=== PATIENT | female | born 1965 | race Caucasian/White ===

== ENCOUNTER → 2021-07-31 09:58 | Outpatient (CLI) | payer BC, SELFPAY ==
--- NOTE | ~2021-07-31 | MMUS_ITS ---
EXAMINATION: MM diagnostic nikolas BI w mack, US breast BI complete HISTORY: Right nipple discoloration TECHNIQUE: Additional 3-D tomosynthesis images of the breasts were performed and synthetic 2-D images were generated. CAD analysis was submitted and interpreted. High resolution bilateral complete breas t ultrasound was performed. COMPARISON: Comparison to multiple prior studies sequentially, with oldest reviewed study dated 07/22. BREAST PARENCHYMAL COMPOSITION: The breasts are heterogenously dense, which may obscure small masses FINDINGS: MAMMOGRAPHIC FINDINGS: The breasts are stable. No new masses, calcifications or architectural distortion in either breast to suggest malignancy. ULTRASOUND: Complete bilateral US of all 4 quadrants of the breasts and retroareolar region was reviewed. Right b reast: At 1:00 near the areola there is a 6 mm cyst. At 9:00, 4 cm from the nipple there are 2 adjace nt cysts, largest measuring 5 mm. At 10:00, 4 cm from the nipple, there is a 4 mm complicated cyst. Left breast ultrasound: At 12:00, 3 cm from the nipple there is a 4 mm cyst. At 2:00, 2.5 cm from the nipple, there is an oval hypoechoic mass with low level internal echoes measuring 9 mm maximum dimen fernando. No significant posterior features or internal vascularity. Parallel orientation. This is likely benign complicated cyst. At 2:00 near the areola there is a 6 mm cyst. At 7:00 near the areola there is a 5 mm cyst. At 11:00 near the areola there is a 3 mm cyst. IMPRESSION: 1. Probable benign complicated cysts of the breasts on the right at 10:00, 4 cm from the nipple and o n the left at 2:00, 2.5 cm from the nipple. 2. Recommend 6 month follow-up targeted bilateral breast ultrasound BI-RADS category 3, probably benign findings. Reviewed, dictated and finalized at location A. IMPRESSION: 1. Probable benign complicated cysts of the breasts on the right at 10:00, 4 cm from the nipple and on the left at 2:00, 2.5 cm from the nipple. 2. Recommend 6 month follow-up targeted bilateral breast ultrasound BI-RADS category 3, probably benign findings.
== END ==
PROVIDERS: Visit Provider Obstetrics & Gynecology Gynecology
DX: N60.02 Solitary cyst of left breast (principal); N60.01 Solitary cyst of right breast
CPT/HCPCS: 76641; 77062; 77066; G0279

== ENCOUNTER → 2022-01-29 10:00 | Outpatient (CLI) | payer BC, SELFPAY ==
--- NOTE | ~2022-01-29 | US_ITS ---
US breast BI limited DATE: 01/29/2022 10:36 INDICATION: Six-month follow-up of probable benign complicated cysts and the breasts on the right at 10:00 4 cm from nipple and on the left at 2:00 2.5 cm from nipple Patient verbalized complaint of new right axillary lump. TECHNIQUE: Limited targeted bilateral breast ultrasound examination COMPARISON: 07/31/2021 bilateral diagnostic mammography 07/31/2021 bilateral complete breast ultrasound FINDINGS: Right axilla: The patient complained of new left and right axilla. No suspicious mass or shadowing of the right axillary soft tissues. Right breast: 9:00 4 cm from nipple: Parallel circumscribed sonolucency with through transmission posterior enhance ment, measuring 2.3 x 4.4 x 6 mm, benign in appearance 10:00 4 cm from nipple: 1.8 x 3 mm sonolucency without internal vascularity or posterior shadowing, u nchanged since 07/31/2021. 1:00 subareolar area: Parallel circumscribed 1.6 x 4.8 x 6 mm circumscribed parallel sonolucency with out internal vascularity or posterior shadowing Left breast: 12:00 5 cm from nipple: 3.6 x 2.2 x 3.7 mm sonolucency without internal vascularity or posterior shad owing 1:00 6 cm from nipple: 4.3 x 2.8 x 4.1 mm sonolucency consistent with simple cyst 2:00 2.5 cm from nipple: Parallel circumscribed hypoechoic lesion without internal vascularity or pos terior shadowing, measuring 6.5 x 4.8 x 9.6 mm, not significantly changed since 07/31/2021 2:00 subareolar area: 2.6 x 5.8 x 5.8 mm parallel circumscribed sonolucency without internal vascular ity or posterior shadowing, stable 7:00 subareolar area: Parallel circumscribed sonolucency without through transmission posterior enhan cement, measuring 4.8 x 2 x 6.6 mm, benign in appearance 11:00 subareolar area: 2 x 3 mm cyst with through transmission IMPRESSION: Probable benign findings Another six-month follow-up targeted to left breast 2:00 lesion 2.5 cm from nipple is recommended, al eric with bilateral mammogram BI-RADS Category 3: Probably benign Reviewed, dictated and finalized at [facility]. Reviewed, dictated and finalized at location A. IMPRESSION: Probable benign findings Another six-month follow-up targeted to left breast 2:00 lesion 2.5 cm from nip ple is recommended, along with bilateral mammogram BI-RADS Category 3: Probably benign
== END ==
PROVIDERS: Visit Provider Obstetrics & Gynecology Gynecology
DX: R92.8 Other abnormal and inconclusive findings on diagnostic imaging of breast (principal); N63.11 Unspecified lump in the right breast, upper outer quadrant; N63.42 Unspecified lump in left breast, subareolar; N63.41 Unspecified lump in right breast, subareolar; N60.02 Solitary cyst of left breast
CPT/HCPCS: 76642

== ENCOUNTER 2022-08-07 13:42 | Emergency (ER) | payer BC, SELFPAY ==
[2022-08-07 13:51] VITALS: BP 144/86; PULSE 112; RESP 20; TEMP 36.5; O2SAT 97
--- NOTE | 2022-08-07 14:04 | ECG_ITS ---
Measurements Intervals [place] Rate: 112 P: 66 MA: 194 QRS: 61 QRSD: 89 T: 51 QT: 321 QTc: 440 Interpretive Statements SINUS TACHYCARDIA POSSIBLE LEFT ATRIAL ENLARGEMENT [-0.1mV P WAVE IN V1/V2] BORDERLINE ECG NO PREVIOUS ECG AVAILABLE FOR COMPARISON Electronically Signed On 08-08-2022 9:28:47 CDT by Eric Alejandra M.D.
--- NOTE | 2022-08-07 14:19 | ED.CHESTPAIN ---
HPI - Chest Pain General Chief Complaint: Chest Pain Stated Complaint: cp Time Seen by Provider: 08/07/22 14:10 Source: patient Mode of arrival: ambulatory Limitations: no limitations History of Present Illness HPI narrative: Patient presents today complaining of sternal chest pain at 11 AM today. It is worse when bending over. She denies any additional symptoms to include shortness of breath, dizziness, lightheadedness, numbness or tingling, any abnormal swelling, nausea or vomiting, abdominal pain. States her, arms feel weird , but cannot specify what that means. Denies any heart or lung problems. She does not smoke. States she has had similar symptoms intermittently over the past 3 to 4 months, but states they quickly resolved. Related Data Home Medications Medication Instructions Recorded Confirmed fluoxetine 40 mg capsule (Prozac) 40 mg PO DAILY 09/29/19 lamotrigine 200 mg tablet 250 mg PO DAILY 09/29/19 lurasidone 20 mg tablet (Latuda) 10 mg PO BID 09/29/19 solifenacin 5 mg tablet mg PO 08/07/22 Allergies Allergy/AdvReac Type Severity Reaction Status Date / Time cefazolin Allergy Severe HIVES Verified 08/07/22 14:01 06/17/14 Review of Systems Review of Systems: CONSTITUTIONAL: Denies body aches, fever, chills, or sweats. EYES: Denies visual changes, redness, or discharge. ENT: Denies rhinorrhea, congestion, sore throat, or otalgia. CARDIOVASCULAR: Denies palpitations, or edema.+ Chest pain RESPIRATORY: Denies cough or dyspnea. GASTROINTESTINAL: Denies abdominal pain, nausea, vomiting, or diarrhea. GENITOURINARY: Denies dysuria or hematuria. SKIN: Denies rash, itching, or wounds. MUSCULOSKELETAL: Denies back pain, joint pain, or myalgia. NEUROLOGIC: Denies headache, numbness, tingling, or weakness. PSYCH: Denies depression or anxiety. [facility] Surgical History Surgical History H/O: hysterectomy Family History Family History Father Family history of lung cancer Social History Social History Smoking status: Former smoker Tobacco type: cigarettes Smoking end date: 10/20/99 Alcohol intake: current Comments At time of signature, I have reviewed and agree with nursing past medical, surgical, social and family history unless otherwise noted. Please see nursing chart for further information. There is no relevant family history pertinent to the presenting complaint Exam Narrative: GENERAL: Well-appearing, well-nourished, and in no acute distress. HEAD: Normocephalic, atraumatic. EYES: EOMI. No redness or drainage. Conjunctivae normal. ENT: Mucous membranes pink and moist. NECK: Normal AROM. Supple. No lymphadenopathy. CHEST: No respiratory distress. Clear to auscultation. HEART: Regular rhythm. + Tachycardia. No murmur appreciated. Normal peripheral pulses. ABDOMEN: Soft, nontender, nondistended, normal active bowel sounds. MUSCULOSKELETAL: No bony tenderness. EXTREMITIES: Normal range of motion. No edema. SKIN: Warm, dry, no rash. Capillary refill normal. Normal skin turgor. NEURO: No focal deficits. Alert and oriented x3. Gait steady. PSYCH: Normal affect. No signs of depression or anxiety. Course Course Level of Care: Express Care Visit Vital Signs Vital signs: Vital Signs Temperature 97.7 F 08/07/22 13:51 Pulse Rate 112 H 08/07/22 13:51 Respiratory Rate 20 08/07/22 13:51 Blood Pressure 144/86 H 08/07/22 13:51 Pulse Oximetry 97 08/07/22 13:51 Oxygen Delivery Room Air 08/07/22 13:51 Temperature 97.7 F 08/07/22 13:51 Pulse Rate 112 H 08/07/22 13:51 Respiratory Rate 20 08/07/22 13:51 Blood Pressure 144/86 H 08/07/22 13:51 Pulse Oximetry 97 08/07/22 13:51 Oxygen Delivery Room Air 08/07/22 13:51 Transfer Transfered to: [facility]
== END 2022-08-07 14:25 | disposition short-term general hospital (02) ==
PROVIDERS: Emergency Provider Nurse Practitioner; PCP Internal Medicine
DX: R07.9 Chest pain, unspecified (principal); Z87.891 Personal history of nicotine dependence
CPT/HCPCS: 93005; 99213; G0463

== ENCOUNTER 2022-08-07 14:40 | Emergency (ER) | payer BC, SELFPAY ==
[2022-08-07] VITALS (23 sets, daily range): BP systolic 114–139; BP diastolic 83–101; PULSE 78–102; RESP 14–25; TEMP 37.1; O2SAT 96–99
--- NOTE | ~2022-08-07 | CT_ITS ---
EXAMINATION: CTA chest PE protocol DATE: 08/07/2022 19:10 INDICATION: chest pain, elevated dimer TECHNIQUE: Computed tomography angiography (CTA) of the chest was performed with 100 mL Omnipaque-350 intravenous contrast timed to evaluate the pulmonary arteries. Coronal maximum intensity projection 3D-reconstructions were created by the technologist. The dose-length product (DLP) was 309.11 mGy-cm. Automated exposure control and iterative reconstruction technique were employed. COMPARISON: X-ray chest, same date. FINDINGS: Lung parenchyma and airways: Left lower lobe scar and bibasilar dependent atelectasis. Pleura: Unremarkable. Thoracic inlet, axillae and chest wall: Unremarkable. Thoracic aorta: Normal. Mediastinum: Normal. Heart and pericardium: Normal. Coronary artery calcifications: Absent. Upper abdomen: No significant finding. Bones: No acute osseous finding. Pulmonary arteries: Study quality: Adequate. No pulmonary emboli detected. IMPRESSION: No CT evidence of acute pulmonary embolus. Reviewed, dictated and finalized at location K.
--- NOTE | ~2022-08-07 | XR_ITS ---
EXAMINATION: XR chest 2V DATE: 08/07/2022 15:21 INDICATION: Midsternal chest pain. TECHNIQUE: Frontal and lateral views of the chest were obtained. COMPARISON: Chest 2 views 11/16/2013 FINDINGS: The chest demonstrates clear lungs without pneumonia, pleural effusion, or pneumothorax. Th e heart size is normal. IMPRESSION: 1. No acute cardiopulmonary disease. Reviewed, dictated and finalized at location B.
--- NOTE | 2022-08-07 14:45 | ECG_ITS ---
Measurements Intervals [place] Rate: 91 P: 68 MN: 179 QRS: 53 QRSD: 86 T: 63 QT: 329 QTc: 406 Interpretive Statements SINUS RHYTHM NORMAL ECG COMPARED TO ECG 08/07/2022 13:59:04 SINUS RHYTHM NOW PRESENT Electronically Signed On 08-08-2022 9:28:56 CDT by Eric Alejandra M.D.
[2022-08-07 16:09] LABS: Basophils Absolute Auto 0.1 K/mm3 (0.0-0.1); Basophils Percent Auto 0.9 % (0.2-1.2); Eosinophils Absolute Auto 0.1 K/mm3 (0-0.3); Eosinophils Percent Auto 0.8 % (0-4.4); Hematocrit 45.9 % (37.0-47.0); Immature Granulocyte Absolute 0.03 K/mm3 (0.00-0.031); Immature Granulocyte Percent A 0.3 % (0-0.5); Lymphocytes Absolute Auto 2.32 K/mm3 (0.9-3.2); Lymphocytes Percent Auto 25.1 % (18.3-44.2); Mean Corpuscular HGB Conc 32.7 g/dl (32-36); Mean Corpuscular Hemoglobin 31.8 pg (26-34); Mean Corpuscular Volume 97.5 fl (80-100); Mean Platelet Volume 9.2 fl (7.4-10.4); Monocytes Absolute Auto 0.8 K/mm3 (0.1-0.6); Monocytes Percent Auto 8.6 % (2.6-8.5); Neutrophils Percent Auto 64.3 % (45.5-73.1); Platelet Count Result 398 k/mm3 (150-375); Red Blood Count 4.71 M/mm3 (4.2-5.4); Red Cell Distribution Width 13.2 % (11.5-14.5); White Blood Count 9.3 K/mm3 (4.5-10.0)
--- NOTE | 2022-08-07 16:21 | ED.CHESTPAIN ---
HPI - Chest Pain General Chief Complaint: Chest Pain Stated Complaint: chest pain Time Seen by Provider: 08/07/22 16:19 Source: patient Mode of arrival: ambulatory Limitations: no limitations History of Present Illness HPI narrative: Patient is a 57-year-old female presenting to the emergency department for evaluation of chest pain after being evaluated at urgent care today. Patient reports onset of chest pain at 11 AM this morning while she was driving. Patient reports radiation of the pain to the middle back, denies pleuritic pain, shortness of breath, diaphoresis, jaw pain or neck pain. Patient denies any shoulder pain, left arm pain or paresthesias. Patient denies abdominal pain or epigastric pain. She did report mild associated palpitations. Patient reports smoking history with cessation 22 years ago. She denies history of hypertension or hyperlipidemia. No family history of sudden cardiac or myocardial infarction in parents or immediate family members. Patient reports recent travel to [place] approximately 1 month ago. She denies leg swelling or calf pain. Denies history of coagulopathy. Patient reports pain is more mild in nature located in the center of her chest and is worsened with movement. She denies pain with deep inspiration. She denies resolution of the pain or worsening of the pain if sitting forward. Patient denies recent illness or known COVID infection. Related Data Home Medications Medication Instructions Recorded Confirmed fluoxetine 40 mg capsule (Prozac) 40 mg PO DAILY 09/29/19 lamotrigine 200 mg tablet 250 mg PO DAILY 09/29/19 lurasidone 20 mg tablet (Latuda) 10 mg PO BID 09/29/19 solifenacin 5 mg tablet mg PO 08/07/22 Allergies Allergy/AdvReac Type Severity Reaction Status Date / Time cefazolin Allergy Severe HIVES Verified 08/07/22 17:33 06/17/14 Review of Systems Review of Systems: CONSTITUTIONAL: Denies fever, chills, or sweats. EYES: Denies visual changes, redness, or discharge. ENT: Denies rhinorrhea, congestion, sore throat, or otalgia. CARDIOVASCULAR: Reports chest pain, palpitations, denies leg edema RESPIRATORY: Denies cough or dyspnea. GASTROINTESTINAL: Denies abdominal pain, nausea, vomiting, or diarrhea. GENITOURINARY: Denies dysuria or hematuria. SKIN: Denies rash or itching. MUSCULOSKELETAL: Reports middle back pain without other joint pain, or myalgia. NEUROLOGIC: Denies headache, numbness, or weakness. [facility] Surgical History Surgical History H/O: hysterectomy Family History Family History Father Family history of lung cancer Social History Social History Smoking status: Former smoker Tobacco type: cigarettes Smoking end date: 10/20/99 Alcohol intake: current Exam Narrative: GENERAL: Awake, alert, conversant HEAD: Normocephalic, atraumatic. EYES: PERRLA and EOMI. ENT: Nares clear, no rhinorrhea or epistaxis. Mucous membranes moist. NECK: Supple. CHEST: No respiratory distress, breathing even and non labored, no chest wall tenderness HEART: Regular rate, sinus rhythm ABDOMEN:Non distended, non tender EXTREMITIES: Normal range of motion. No edema. SKIN: Warm, dry, no rash. NEURO:No focal deficits. Alert and oriented x3 Course Vital Signs Vital signs: Vital Signs Temperature 37.1 C 08/07/22 14:46 Pulse Rate 102 H 08/07/22 14:46 Respiratory Rate 18 08/07/22 14:46 Blood Pressure 139/90 08/07/22 14:46 Pulse Oximetry 99 08/07/22 14:46 Oxygen Delivery Room Air 08/07/22 14:46 Temperature 37.1 C 08/07/22 14:46 Pulse Rate 98 08/07/22 18:51 Respiratory Rate 25 H 08/07/22 18:51 Blood Pressure 121/83 08/07/22 18:30 Pulse Oximetry 97 08/07/22 18:51 Oxygen Delivery Room Air 08/07/22 14:46 MDM - Chest Pain MDM Narrative Medical de
[2022-08-07 16:24] LABS: Alanine Aminotransferase 27 U/L (6-35); Albumin Level 4.5 g/dL (3.5-5.1); Alkaline Phosphatase 110 U/L (38-126); Anion Gap 11 mmol/L (8-16); Aspartate Amino Transferase 28 U/L (14-36); Bilirubin,Total 0.3 mg/dL (0.2-1.3); Blood Urea Nitrogen 12 mg/dL (7-17); Calcium 10.1 mg/dL (8.4-10.2); Carbon Dioxide 30 mmol/L (22-30); Chloride 100 mmol/L (98-107); Estimated CRCL calculation 65 ml/min; Estimated Glomerular Filt Rate > 60; Glucose 86 mg/dL (65-110); Lipase 103 U/L (23-300); Potassium 3.6 mmol/L (3.4-5.0); Sodium 141 mmol/L (137-145)
[2022-08-07 16:32] LABS: INR 1.1; Partial Thromboplastin Time 27.6 SECONDS (22.3-36.8); Prothrombin Time 13.3 Seconds (11.1-14.7)
[2022-08-07 16:35] LABS: Troponin I < 0.012 ng/mL (0.000-0.034)
[2022-08-07 18:09] LABS: D Dimer 0.62 ug/mL (<0.48)
[2022-08-07 18:16] LABS: Troponin I < 0.012 ng/mL (0.000-0.034)
== END 2022-08-07 20:10 | disposition home or self-care (01) ==
PROVIDERS: Emergency Medicine; Emergency Provider Emergency Medicine; PCP Internal Medicine
DX: R07.89 Other chest pain (principal); Z90.710 Acquired absence of both cervix and uterus; Z87.891 Personal history of nicotine dependence
CPT/HCPCS: 36415; 71046; 71275; 80053; 83690; 84484; 85025; 85380; 85610; 85730; 93005; 99284; Q9967

== ENCOUNTER → 2022-09-19 09:43 | Outpatient (CLI) | payer BC, SELFPAY ==
--- NOTE | ~2022-09-19 | MMUS_ITS ---
EXAMINATION: MM diagnostic nikolas BI w mack, US breast LT limited HISTORY: Six-month follow-up for probably benign left breast mass TECHNIQUE: Craniocaudal, mediolateral, and mediolateral oblique 3-D tomosynthesis images of the dwight ts were performed and synthetic 2-D images were generated. CAD analysis was submitted and interpreted . High resolution limited left breast ultrasound was performed. COMPARISON: 01/29/2022, 07/31/2021, 08/31/2019, 07/03/2018 BREAST PARENCHYMAL COMPOSITION: There are scattered areas of fibroglandular density. FINDINGS: MAMMOGRAPHIC FINDINGS: No suspicious mass, calcification, or architectural distortion are identified in either breast to sug gest malignancy. There has been no suspicious interval change. ULTRASOUND: Any millimeters by 4 mm oval, circumscribed parallel, hypoechoic mass with no posterior features or i nternal vascularity at the 2:00 location 2.5 cm from the nipple is stable to slightly decreased in si ze since the prior examination. There has been no suspicious interval change. IMPRESSION: 1. Stable, probably benign left breast mass. 2. Given one year of interval stability, recommend 12 month followup bilateral diagnostic mammogram a nd left breast ultrasound. BI-RADS category 3, probably benign findings. Reviewed, dictated and finalized at location A. [employer] IMPRESSION: 1. Stable, probably benign left breast mass. 2. Given one year of interval stability, recommend 12 month followup bilateral diagnostic mammogram and left breast ultrasound. BI-RADS category 3, probably benign findings.
== END ==
PROVIDERS: PCP Internal Medicine; Visit Provider Obstetrics & Gynecology Gynecology
DX: R92.8 Other abnormal and inconclusive findings on diagnostic imaging of breast (principal)
CPT/HCPCS: 76642; 77062; 77066; G0279

== ENCOUNTER 2022-11-11 20:25 | Observation (INO) | payer BC, SELFPAY ==
--- NOTE | ~2022-11-11 | CT_ITS ---
CT Abdomen and Pelvis with contrast. History: Abdominal pain. Spiral CT of the abdomen and pelvis was performed after the administration of intravenous contrast. 1 00 cc of Omnipaque 350 was administered intravenously without complication. Dose reduction technique was used on this scan by utilizing automated exposure control and iterative reconstruction technique. The dose-length product (DLP) was 842.73 mGy-cm. Findings: Scans through the lung bases demonstrate mild atelectatic change. The liver, spleen, pancreas, adrenals and kidneys are within normal limits. There is gallbladder wall thickening and/or pericholecystic fluid. No evidence of aortic aneurysm. No lymphadenopathy is seen . There is no evidence of bowel obstruction.. There is mild diverticulosis. No evidence for acute diver ticulitis or appendicitis. Images through the pelvis were performed. Urinary bladder unremarkable. Patient is post hysterectomy. No pelvic mass seen No ascites is seen. Impression: Gallbladder wall thickening and/or pericholecystic fluid are suspicious for possible acute cholecysti tis. Consider ultrasound and/or HIDA scan to further evaluate for gallbladder disease. Reviewed, dictated and finalized at [facility]. MILLER Impression: Gallbladder wall thickening and/or pericholecystic fluid are suspicious for pos sible acute cholecystitis. Consider ultrasound and/or HIDA scan to further eval uate for gallbladder disease.
--- NOTE | ~2022-11-11 | US_ITS ---
Limited Abdominal Sonogram: Real-time sonographic imaging of the right upper quadrant was performed. Clinical History: Right upper quadrant pain Findings: The liver appears normal with no evidence of mass lesion or bile duct dilatation. Main por boom vein demonstrates normal direction of flow. The gallbladder is well distended, with probable smal l stones in the gallbladder neck. Gallbladder wall mildly thickened to 5 mm. The common bile duct genesis sures 3 mm. The visualized pancreas, aorta, and IVC are unremarkable. Impression: Probable small stones the gallbladder neck with mild gallbladder wall thickening. Findings are compat ible with acute cholecystitis. HIDA scan could be considered for further confirmation as indicated. Reviewed, dictated and finalized at location M. ER TAPER Impression: Probable small stones the gallbladder neck with mild gallbladder wall thickenin g. Findings are compatible with acute cholecystitis. HIDA scan could be conside red for further confirmation as indicated.
[2022-11-11 20:36] VITALS: BP 146/93; PULSE 80; RESP 18; TEMP 36.4; O2SAT 97
[2022-11-12] MEDS: SODIUM CHLORIDE 0.9% IV 1,000 ML 999 ML IV CONT (03:44)
[2022-11-12] MEDS: ONDANSETRON INJ 4 MG/2 ML VIAL IV PUSH (03:45)
[2022-11-12] MEDS: MORPHINE SULFATE (*CRX) 4 MG/ML INJ IV PUSH (03:45)
--- NOTE | 2022-11-12 04:08 | ED.GENADULT ---
HPI - General Adult General Chief complaint: Abdominal Pain <Charlie Alegria MD - Last Filed: 11/12/22 04:10> Stated complaint: chest pain <Charlie Alegria MD - Last Filed: 11/12/22 04:10> Time Seen by Provider: 11/12/22 02:53 <Charlie Alegria MD - Last Filed: 11/12/22 04:10> History of Present Illness HPI narrative: 57-year-old female that presents the emergency department with chief complaint of epigastric pain. Patient reports the pain began about an hour after she is ate this evening and reports that its localized to the epigastrium and right upper quadrant. Patient reports the pain is not relieved by anything reports no vomiting or diarrhea. Patient reports that she had a similar episode and had an extensive cardiac work-up that was negative. Patient reports she is concerned that she may be having issues with her gallbladder. <Charlie Alegria MD - Last Filed: 11/12/22 04:10> 57-year-old female that presents to the emergency department with chief complaint of epigastric pain. Patient reports the pain began about an hour after she is ate this evening and reports that its localized to the epigastrium and right upper quadrant. Patient reports the pain is not relieved by anything reports no vomiting or diarrhea. Patient reports that she had a similar episode and had an extensive cardiac work-up that was negative. Patient reports she is concerned that she may be having issues with her gallbladder. <Daniel Lancaster MD - Last Filed: 11/12/22 17:26> Related Data Home medications: Home Medications Medication Instructions Recorded Confirmed fluoxetine 40 mg capsule (Prozac) 40 mg PO DAILY 09/29/19 11/12/22 lamotrigine 200 mg tablet 250 mg PO DAILY 09/29/19 11/12/22 solifenacin 5 mg tablet 5 mg PO DAILY 08/07/22 11/12/22 <Charlie Alegria MD - Last Filed: 11/12/22 04:10> Allergies/adverse reactions: Allergies Allergy/AdvReac Type Severity Reaction Status Date / Time cefazolin Allergy Severe HIVES Verified 11/12/22 12:24 06/17/14 <Charlie Alegria MD - Last Filed: 11/12/22 04:10> Review of Systems Review of Systems: A 10 system review of systems was completed on the patient and is negative except for what is stated in the HPI. Nursing and ancillary documentation was reviewed. <Charlie Alegria MD - Last Filed: 11/12/22 04:10> PMFSH Past Medical History Medical History: Medical History (Updated 11/12/22 @ 16:45 by Adam Osman DO) Depression Overactive bladder <Charlie Alegria MD - Last Filed: 11/12/22 04:10> Surgical History Surgical History: Surgical History H/O: hysterectomy <Charlie Alegria MD - Last Filed: 11/12/22 04:10> Family History Family History: Family History Father Family history of lung cancer <Charlie Alegria MD - Last Filed: 11/12/22 04:10> Social History Social History: Social History Smoking status: Former smoker Tobacco type: cigarettes Smoking end date: 10/20/99 Alcohol intake: current Drinks per week: 10 Substance use: current Lack of Transportation: No Lack of Food: Never True Current Housing: I Have Housing Concerned About Future Housing: No Difficulty Paying Gas/Electric Bills: No Difficulty Paying for Meds: No Currently Unemployed: No Education: High School Diploma/GED Difficulty w/ Childcare or Family Care: No Spiritual care concerns: No <Charlie Alegria MD - Last Filed: 11/12/22 04:10> Exam Narrative: GENERAL: Well-appearing, well-nourished, and in no acute distress. HEAD: Normocephalic, atraumatic. EYES: PERRLA and EOMI. ENT: Nares clear, no rhinorrhea or epistaxis. Mucous membranes moist. NECK: S
[2022-11-12 04:09] LABS: Appearance Urine Slightly Cloudy (Clear); Bilirubin Urine Negative (Negative); Blood Urine Trace-intact (Negative); Glucose Urine UA Negative (Negative); Ketones Urine Negative (Negative); Leukocyte Esterase Ur 2+ LEU/UL (Negative); Nitrate Urine Negative (Negative); Protein Urine Negative (Negative); Urobilinogen Urine 0.2 mg/dL (<2.0); pH Urine 7.5 (5.0-9.0)
[2022-11-12 04:44] LABS: Bacteria Urine Trace /hpf; WBC Urine 31-50 /hpf
[2022-11-12 05:23] LABS: Basophils Absolute Auto 0.1 K/mm3 (0.0-0.1); Basophils Percent Auto 0.7 % (0.2-1.2); Eosinophils Absolute Auto 0.1 K/mm3 (0-0.3); Eosinophils Percent Auto 0.7 % (0-4.4); Hematocrit 42.9 % (37.0-47.0); Hemoglobin 14.3 g/dL (12.0-15.0); Immature Granulocyte Absolute 0.04 K/mm3 (0.00-0.031); Immature Granulocyte Percent A 0.4 % (0-0.5); Mean Corpuscular HGB Conc 33.3 g/dl (32-36); Mean Corpuscular Hemoglobin 32.8 pg (26-34); Mean Corpuscular Volume 98.4 fl (80-100); Mean Platelet Volume 9.3 fl (7.4-10.4); Monocytes Absolute Auto 0.9 K/mm3 (0.1-0.6); Monocytes Percent Auto 9.3 % (2.6-8.5); Neutrophils Absolute Auto 6.4 K/mm3 (1.3-6.7); Neutrophils Percent Auto 63.9 % (45.5-73.1); Platelet Count Result 333 k/mm3 (150-375); Red Blood Count 4.36 M/mm3 (4.2-5.4); Red Cell Distribution Width 12.6 % (11.5-14.5)
[2022-11-12 05:31] LABS: Alanine Aminotransferase 25 U/L (6-35); Albumin Level 3.9 g/dL (3.5-5.1); Alkaline Phosphatase 108 U/L (38-126); Anion Gap 2 mmol/L (8-16); Aspartate Amino Transferase 25 U/L (14-36); Bilirubin,Total 0.4 mg/dL (0.2-1.3); Blood Urea Nitrogen 13 mg/dL (7-17); Carbon Dioxide 27 mmol/L (22-30); Chloride 105 mmol/L (98-107); Estimated CRCL calculation 76 ml/min; Estimated Glomerular Filt Rate > 60; Glucose 105 mg/dL (65-110); Lipase 129 U/L (23-300); Potassium 3.8 mmol/L (3.4-5.0); Sodium 134 mmol/L (137-145)
[2022-11-12 05:38] LABS: Add Urine Microscopic? YES; Color Urine Light Yellow (Yellow)
[2022-11-12] MEDS: metroNIDAZOLE 500 MG/ISO 100ML 500 MG/100 ML BAG 100 MG IVPB ×2 (09:16→17:44)
[2022-11-12 10:03] LABS: Influenza A QL RT-PCR Negative (Negative); Influenza B QL RT-PCR Negative (Negative); SARS-CoV-2 RNA PCR Negative
[2022-11-12 11:33] VITALS: BP 115/90; PULSE 70; RESP 12; O2SAT 100
--- NOTE | 2022-11-12 11:51 | PC.NURSE ---
Called floor to let them know pt was coming up.
[2022-11-12 12:19] VITALS: BP 126/90; PULSE 65; RESP 18; TEMP 36.7; O2SAT 98
[2022-11-12] MEDS: SODIUM CHLORIDE 0.9% IV 1,000 ML 100 ML IV CONT (12:20)
--- NOTE | 2022-11-12 12:32 | ADMGEN ---
This patient, Shabana Medina, was admitted to 3 [facility] Surg Room 306-02. Report received from IVETT Soliman. Patient/family oriented to hospital policies and general routines including ID bracelet, bed and alarms, visiting hours, pain management, procedures, bathroom and other care routines, personal items, smoking policy, room service/diet, and visiting hours. Information on how to activate the Rapid Response Team has been discussed. Patient/Family are encouraged to report perceived risks to care and to ask questions if they do not understand what they are told or what they should do.
[2022-11-12] MEDS: ACETAMINOPHEN 500 MG TABLET 1000 MG PO ×2 (12:57→21:28)
[2022-11-12] MEDS: CIPROFLOXACIN 400 MG/D5W 200ML 200 ML 200 MG IVPB ×2 (13:18→21:25)
--- NOTE | 2022-11-12 16:40 | PM.IMHP ---
H&P: HPI History of Present Illness Date/Time: 11/12/22 16:40 Chief Complaint: Epigastric pain Narrative: This is a 57-year-old woman who presented to the emergency department last night with epigastric pain that started after eating. She has had multiple episodes like this the past. She was experiencing pain throughout the evening yesterday and these pains have been progressively getting worse. She also has had an episode of nausea and vomiting. Her symptoms mostly started about 3 months ago. She was recently placed on a weight loss medication, but denies any other new changes. She did lose about 20-30 lb with this medication. She states that it was something similar to Ozempic but is a once daily shot. She denies any fevers or chills. Review of Systems Review of Systems: All systems reviewed & are unremarkable except as noted in HPI and below Eyes: Eyes: Denies change in vision ENT: Denies hearing loss, Denies neck pain and Denies sore throat Cardiovascular: Cardiovascular: Denies chest pain and Denies dyspnea Respiratory: Respiratory: Denies cough, Denies dyspnea and Denies wheezing Genitourinary: Genitourinary: Denies hematuria and Denies dysuria Musculoskeletal: Musculoskeletal: Denies arthralgias, Denies joint swelling and Denies neck pain Allergic/Immunologic: Allergic/Immunologic: Denies wheezing PMFSH Past Medical History Medical History (Updated 11/12/22 @ 16:45 by Adam Osman DO) Depression Overactive bladder Surgical History Surgical History H/O: hysterectomy Family History Family History Father Family history of lung cancer Social History Social History Smoking status: Former smoker Tobacco type: cigarettes Smoking end date: 10/20/99 Alcohol intake: current Drinks per week: 10 Substance use: current Lack of Transportation: No Lack of Food: Never True Current Housing: I Have Housing Concerned About Future Housing: No Difficulty Paying Gas/Electric Bills: No Difficulty Paying for Meds: No Currently Unemployed: No Education: High School Diploma/GED Difficulty w/ Childcare or Family Care: No Spiritual care concerns: No Meds Home Medications and Allergies Home Medications Medication Instructions Recorded Confirmed Type fluoxetine 40 mg capsule (Prozac) 40 mg PO DAILY 09/29/19 11/12/22 History lamotrigine 200 mg tablet 250 mg PO DAILY 09/29/19 11/12/22 History solifenacin 5 mg tablet 5 mg PO DAILY 08/07/22 11/12/22 History Allergies Allergy/AdvReac Type Severity Reaction Status Date / Time cefazolin Allergy Severe HIVES Verified 11/12/22 12:24 06/17/14 Vital Signs Vital Signs - 24 hr 11/11/22 20:36 11/12/22 11:33 11/12/22 12:19 Temperature 36.4 C 36.7 C Pulse Rate 80 70 65 Respiratory Rate 18 12 18 Blood Pressure 146/93 H 115/90 126/90 Pulse Oximetry 97 100 98 Oxygen Delivery Room Air Exam Const: General: alert; No acute distress Orientation/consciousness: patient oriented x3 Limitations: no limitations HENMT: Head: normocephalic and atraumatic Ears: hearing grossly normal bilaterally Face/Nose/Sinus: Normal external nose present and Normal nares present Mouth: Yes Normal oral and palatal mucosa present and Yes moist mucous membranes Eyes: General: appearance normal, both eyes and all related structures Conjunctivae: conjunctivae normal Sclera: sclerae normal Pupils: Equal, round and reactive pupils present EOM: EOMs intact bilaterally Neck: Neck: normal visual inspection, full ROM, no lymphadenopathy, supple and no JVD Lymphatic: no lymphadenopathy noted Chest: Chest palpation & inspection: normal inspection of the chest Resp: Effort & Inspection: normal respiratory effort and able to speak in complete sentences Auscultation: lucho
[2022-11-12 22:00] VITALS: BP 103/84; PULSE 87; RESP 14; TEMP 35.9; O2SAT 97
[2022-11-13] VITALS (14 sets, daily range): BP systolic 111–149; BP diastolic 63–97; PULSE 64–117; RESP 14–22; TEMP 35.7–37.1; O2SAT 92–100
[2022-11-13] MEDS: metroNIDAZOLE 500 MG/ISO 100ML 500 MG/100 ML BAG 100 MG IVPB ×3 (02:32→17:30)
[2022-11-13] MEDS: SODIUM CHLORIDE 0.9% IV 1,000 ML 100 ML IV CONT (02:33)
[2022-11-13 06:30] LABS: Hematocrit 39.6 % (37.0-47.0); Hemoglobin 13.3 g/dL (12.0-15.0); Mean Corpuscular HGB Conc 33.6 g/dl (32-36); Mean Corpuscular Hemoglobin 32.8 pg (26-34); Mean Corpuscular Volume 97.5 fl (80-100); Mean Platelet Volume 9.6 fl (7.4-10.4); Platelet Count Result 331 k/mm3 (150-375); Red Blood Count 4.06 M/mm3 (4.2-5.4); Red Cell Distribution Width 12.7 % (11.5-14.5); White Blood Count 6.3 K/mm3 (4.5-10.0)
[2022-11-13 06:57] LABS: Alanine Aminotransferase 21 U/L (6-35); Albumin Level 3.3 g/dL (3.5-5.1); Alkaline Phosphatase 77 U/L (38-126); Anion Gap 1 mmol/L (8-16); Aspartate Amino Transferase 20 U/L (14-36); Bilirubin,Total 0.5 mg/dL (0.2-1.3); Blood Urea Nitrogen 6 mg/dL (7-17); Calcium 8.7 mg/dL (8.4-10.2); Carbon Dioxide 28 mmol/L (22-30); Chloride 108 mmol/L (98-107); Estimated CRCL calculation 86 ml/min; Estimated Glomerular Filt Rate > 60; Glucose 93 mg/dL (65-110); Potassium 3.7 mmol/L (3.4-5.0); Sodium 137 mmol/L (137-145)
[2022-11-13] MEDS: INDOCYANINE GREEN 25 MG VIAL IV PUSH (07:52)
--- NOTE | 2022-11-13 08:03 | WPDANESEPPF ---
Anes - Initial Pre Proc Eval Procedure: Operation Date: 11/13/22 14:00 Proposed Procedures p Robotic Assisted Cholecystectomy, Possible Laparoscopic Cholecystectomy - Adam Osman DO Date/Time: 11/13/22 08:03 Surgeon: Adam Osman DO Pre Op Diagnosis: Acute Cholecystitis Patient Data Age: 57 Gender: F Height: 1.68 m Weight: 84.5 kg Last Vital Signs Temp 35.9 C L 11/12/22 22:00 Pulse 87 11/12/22 22:00 Resp 14 11/12/22 22:00 BP 103/84 11/12/22 22:00 Pulse Ox 97 11/12/22 22:00 O2 Del Method Room Air 11/12/22 20:00 Allergies Allergy/AdvReac Type Severity Reaction Status Date / Time cefazolin Allergy Severe HIVES Verified 11/12/22 12:24 06/17/14 Home Medications Medication Instructions Recorded Confirmed Type fluoxetine 40 mg capsule (Prozac) 40 mg PO DAILY 09/29/19 11/12/22 History lamotrigine 200 mg tablet 250 mg PO DAILY 09/29/19 11/12/22 History solifenacin 5 mg tablet 5 mg PO DAILY 08/07/22 11/12/22 History Laboratory Tests 11/12/22 11/13/22 11/13/22 09:22 05:42 05:42 WBC 6.3 K/mm3 K/mm3 (4.5-10.0) RBC 4.06 M/mm3 L M/mm3 (4.2-5.4) Hgb 13.3 g/dL g/dL (12.0-15.0) Hct 39.6 % % (37.0-47.0) MCV 97.5 fl fl (80-100) MCH 32.8 pg pg (26-34) MCHC 33.6 g/dl g/dl (32-36) RDW 12.7 % % (11.5-14.5) Plt Count 331 k/mm3 k/mm3 (150-375) MPV 9.6 fl fl (7.4-10.4) Sodium 137 mmol/L mmol/L (137-145) Potassium 3.7 mmol/L mmol/L (3.4-5.0) Chloride 108 mmol/L H mmol/L (98-107) Carbon Dioxide 28 mmol/L mmol/L (22-30) Anion Gap 1 mmol/L L mmol/L (8-16) BUN 6 mg/dL L D mg/dL (7-17) Creatinine 0.70 mg/dL mg/dL (0.7-1.0) Estim Creat Clear Calc 86 ml/min ml/min Estimated GFR > 60 (59 - ) Glucose 93 mg/dL mg/dL (65-110) Calcium 8.7 mg/dL mg/dL (8.4-10.2) Total Bilirubin 0.5 mg/dL mg/dL (0.2-1.3) AST 20 U/L U/L (14-36) ALT 21 U/L U/L (6-35) Alkaline Phosphatase 77 U/L U/L (38-126) Total Protein 6.0 g/dL L g/dL (6.3-8.2) Albumin 3.3 g/dL L g/dL (3.5-5.1) Influenza A (RT-PCR) Negative (Negative) Influenza B (RT-PCR) Negative (Negative) SARS-CoV-2 RNA (RT-PCR) Negative Patient hx anesthesia problems: none Family hx anesthesia problems: none Results Review: All pre-operative results and documents have been reviewed as part of the pre-operative evaluation. [facility] Past Medical History Medical History (Updated 11/12/22 @ 16:45 by Adam Osman DO) Depression Overactive bladder Surgical History Surgical History H/O: hysterectomy Family History Family History Father Family history of lung cancer Social History Social History Smoking status: Former smoker Tobacco type: cigarettes Smoking end date: 10/20/99 Alcohol intake: current Drinks per week: 10 Substance use: current Lack of Transportation: No Lack of Food: Never True Current Housing: I Have Housing Concerned About Future Housing: No Difficulty Paying Gas/Electric Bills: No Difficulty Paying for Meds: No Currently Unemployed: No Education: High School Diploma/GED Difficulty w/ Childcare or Family Care: No Spiritual care concerns: No Anes - Eval Final PreProcedure Day of Procedure 11/13/22 08:03 Patient weight: obese Heart: regular rate and rhythm Lungs: clear to auscultation Airway: Mallampati scale class II Neurological: alert and oriented Last oral intake: >/= 8 hours ASA classification: II Emergent: no Anesthetic plan: proceed Anesthesia t
[2022-11-13] MEDS: lamoTRIgine 100 MG TABLET 200 MG PO (08:18)
[2022-11-13] MEDS: FLUoxetine HCL 20 MG CAPSULE 40 MG PO (08:20)
[2022-11-13] MEDS: lamoTRIgine 50 MG TABLET PO (08:20)
[2022-11-13] MEDS: SOLIFENACIN 5 MG TABLET PO (08:21)
[2022-11-13] MEDS: CIPROFLOXACIN 400 MG/D5W 200ML 200 ML 200 MG IVPB ×2 (08:22→20:18)
[2022-11-13 08:41] LABS: Glucose Point of Care 96 mg/dl (65-105)
[2022-11-13] MEDS: HYDROmorphone HCL INJ (*CRX) 1 MG/ML SYR 0.5 MG IV PUSH (10:45)
[2022-11-13] MEDS: ONDANSETRON INJ 4 MG/2 ML VIAL IV PUSH (10:55)
[2022-11-13] MEDS: LACTATED RINGERS 1,000 ML 30 ML IV CONT ×2 (12:14→14:55)
--- NOTE | 2022-11-13 12:40 | WPDHPUPDATE1 ---
History and Physical Update Update Date/Time: 11/13/22 12:40 History and Physical has been reviewed, including an updated exam of the patient. There are NO changes in the patient's condition. Risks, benefits, and alternatives have been discussed and questions answered. Patient agrees to proceed with procedure.
[2022-11-13] MEDS: BUPIVACAINE/EPINEPHRINE 0.5% 30 ML VIAL INFILTRATE (13:46)
--- NOTE | 2022-11-13 15:03 | W.PM.PROC2 ---
Procedure Note - Detailed Date of Procedure 11/13/22 Pre-op Diagnosis Acute Calculous Cholecystitis Post-op Diagnosis Same Procedure Performed 1. Laparoscopic cholecystectomy with cholangiography, da Apolinar assisted 2. Interpretation of cholangiography Surgeon Aadm Osman DO Anesthesia General and Local (0.5% bupivacaine) Indications This is a 57-year-old woman who presented to the emergency department with worsening epigastric abdominal pain. She had had multiple episodes like this over the past several weeks. Workup in the emergency department showed evidence of gallbladder wall thickening and gallstones at the neck of the gallbladder. Her white blood count and liver enzymes were normal. She was continuing to pain in the emergency department, therefore she was admitted for further treatment. Discussions were made with the patient about treatment options and decision was made to proceed with robotic assisted laparoscopic cholecystectomy with cholangiography. Findings Patient received 1.5 mL of indocyanine green preoperatively. Robotic assisted laparoscopic cholecystectomy was then performed. Near infrared imaging was used with indocyanine green to help identify the neck of the gallbladder and cystic duct. The common bile duct was not in view due to the overlying adventitial tissue. The patient did have multiple pericholecystic adhesions and some chronic gallbladder wall thickening. There were also several stones within the gallbladder. The cystic duct appeared normal in size. The gallbladder was removed and sent to the lab for pathology. Description of Procedure Procedure as well as risks, benefits, and alternatives were discussed with the patient. Written consent was obtained and placed in chart prior to procedure. 1.5 mL of indocyanine green was given intravenously in preop. Patient was brought back to surgical suite. She was placed supine on operating table. Time-out was done to confirm patient and procedure. She was then intubated by the anesthesia department. Her abdomen was then prepped and draped in sterile fashion using chlorhexidine prep. 0.5% bupivacaine was infiltrated locally at the site of each port placement. An 8 mm incision was made just superior to the umbilicus and a 5 mm Optiview trocar was then advanced through the abdominal layers under direct visualization. Once inside the abdominal cavity, carbon dioxide insufflation was used to create a pneumoperitoneum. The camera was inserted and the abdomen was inspected. No mediated abnormalities were noted. The patient was placed in 10? reverse Trendelenburg position and rotated 10? to the left. Two 8 mm incisions were made in the right lateral abdomen and 2 8 mm trocars were inserted under direct visualization. A 12 mm incision was made in the left lateral abdomen and a 12 mm trocar was inserted under direct visualization. The 5 mm Optiview trocar was then removed and another 8 mm trocar was inserted in its place. The robotic arms were then brought up to the patient's bedside and secured to each port. The camera and instruments were inserted. I then moved over to the robotic consult to take control of the camera and instruments. The gallbladder was grasped at the fundus and retracted cephalad. The infundibulum of the gallbladder was then grasped and retracted laterally. Hook electrocautery was then used to carefully dissect around the neck of the gallbladder. The cystic duct was identified and a window was created around it using hook electrocautery. The cystic artery was also identified and a window was created behind it using hook electrocautery. Critical view of safety was identified visualizing the cystic duct running directly into the neck of the gallbladder and the cystic artery running directly into the wall the gallbladder. The camera view was switched to firefly mode and the indocyanine green within the gallbladder and cystic duct was clearly visualized. N
[2022-11-13] MEDS: fentaNYL CITRATE INJ (*CRX) 100 MCG/2 ML VIAL 25 MCG IV PUSH ×4 (15:30→15:51)
[2022-11-13] MEDS: HYDROcodone/acetaminophen (*CRX) 5-325 MG TABLET 1 TAB PO ×2 (16:36→22:40)
[2022-11-14] MEDS: ONDANSETRON INJ 4 MG/2 ML VIAL IV PUSH ×2 (01:35→11:38)
[2022-11-14] MEDS: metroNIDAZOLE 500 MG/ISO 100ML 500 MG/100 ML BAG 100 MG IVPB ×2 (01:35→09:57)
[2022-11-14 01:48] VITALS: BP 127/78; PULSE 90; RESP 20; TEMP 36.2; O2SAT 96
[2022-11-14] MEDS: ACETAMINOPHEN 500 MG TABLET 1000 MG PO (02:39)
[2022-11-14 05:48] VITALS: BP 115/64; PULSE 83; RESP 16; TEMP 35.6; O2SAT 97
[2022-11-14 06:11] LABS: Hematocrit 37.1 % (37.0-47.0); Hemoglobin 12.4 g/dL (12.0-15.0); Mean Corpuscular HGB Conc 33.4 g/dl (32-36); Mean Corpuscular Hemoglobin 31.9 pg (26-34); Mean Corpuscular Volume 95.4 fl (80-100); Mean Platelet Volume 9.4 fl (7.4-10.4); Platelet Count Result 316 k/mm3 (150-375); Red Blood Count 3.89 M/mm3 (4.2-5.4); Red Cell Distribution Width 12.6 % (11.5-14.5); White Blood Count 12.2 K/mm3 (4.5-10.0)
[2022-11-14 06:24] LABS: Anion Gap 3 mmol/L (8-16); Blood Urea Nitrogen 6 mg/dL (7-17); Calcium 8.8 mg/dL (8.4-10.2); Carbon Dioxide 29 mmol/L (22-30); Chloride 108 mmol/L (98-107); Estimated CRCL calculation 76 ml/min; Estimated Glomerular Filt Rate > 60; Glucose 122 mg/dL (65-110); Potassium 3.7 mmol/L (3.4-5.0); Sodium 140 mmol/L (137-145)
[2022-11-14 08:00] VITALS: BP 114/69; PULSE 76; RESP 18; TEMP 36.2; O2SAT 98
[2022-11-14] MEDS: SOLIFENACIN 5 MG TABLET PO (08:32)
[2022-11-14] MEDS: lamoTRIgine 100 MG TABLET 200 MG PO (08:32)
[2022-11-14] MEDS: FLUoxetine HCL 20 MG CAPSULE 40 MG PO (08:32)
[2022-11-14] MEDS: lamoTRIgine 50 MG TABLET PO (08:32)
[2022-11-14] MEDS: CIPROFLOXACIN 400 MG/D5W 200ML 200 ML 200 MG IVPB (08:33)
[2022-11-14] MEDS: HYDROcodone/acetaminophen (*CRX) 5-325 MG TABLET 1 TAB PO (10:07)
--- NOTE | 2022-11-14 10:55 | WPDANESPN ---
Anes - Prog Note Post-Op Date/Time: 11/14/22 10:55 Cardiovascular status: normal Respiratory status: normal Airway patency: baseline Mental status: baseline Post-Op hydration status: normal Vital Signs: Last Vital Signs Temp 36.2 C L 11/14/22 08:00 Pulse 76 11/14/22 08:00 Resp 18 11/14/22 08:00 BP 114/69 11/14/22 08:00 Pulse Ox 98 11/14/22 08:00 O2 Del Method Autopap 11/13/22 23:40 O2 Flow Rate 2 11/13/22 15:55 Pain Score (VAS): 11/29 I/O: Intake & Output 11/13/22 11/14/22 11/14/22 23:59 07:59 15:59 Intake Total 1590 1170 480 Output Total 400 Balance 1190 1170 480 Laboratory Tests 11/14/22 05:41 11/14/22 05:41 11/14/22 11/14/22 05:41 05:41 WBC 12.2 H RBC 3.89 L Hgb 12.4 Hct 37.1 MCV 95.4 MCH 31.9 MCHC 33.4 RDW 12.6 Plt Count 316 MPV 9.4 Sodium 140 Potassium 3.7 Chloride 108 H Carbon Dioxide 29 Anion Gap 3 L BUN 6 L Creatinine 0.80 Estim Creat Clear Calc 76 Estimated GFR > 60 Glucose 122 H Calcium 8.8 Microbiology 11/12/22 03:42 Unspecified Urine Culture - Final Post-procedural complaints: none Patient Feedback: Patient satisfied with anesthetic care.
[2022-11-14] MEDS: MORPHINE SULFATE (*CRX) 2 MG/ML INJ IV PUSH (11:33)
[2022-11-14 11:59] VITALS: BP 136/85; PULSE 69; RESP 20; TEMP 35.7; O2SAT 99
--- NOTE | 2022-11-14 12:29 | PM.DS ---
DS: Admitting Diagnosis Discharge Date 11/14/2022 Admitting Diagnosis acute calculous cholecystitis DS: Discharge Diagnosis Discharge Diagnosis (1) Acute calculous cholecystitis: Code(s): K80.00 - Calculus of gallbladder with acute cholecystitis without obstruction Status: Acute DS: Summary Hospital Course Reason for hospitalization: Acute calculous cholecystitis Hospital Course: This is a 57-year-old woman who presented to the emergency department on 11/12/2022 with epigastric abdominal pain. She had been experiencing intermittent pains like this for the past several months, but this became more severe and constant over the last 2-3 days. She was noted to have evidence of gallbladder wall thickening and pericholecystic fluid along with gallstones suspicious for acute calculous cholecystitis. Her white blood count and liver enzymes were normal. Her pain was still persisting in the emergency department despite a couple doses of pain medications. She was then admitted for further treatment. She underwent robotic assisted laparoscopic cholecystectomy on 11/13/2022. Surgery was uncomplicated and she was returned to the surgical floor postoperatively. Her diet and activity were slowly advanced as tolerated. On postoperative day 1, her pain was well controlled, she was tolerating a low-fat diet, and she was remaining hemodynamically stable. She was discharged on 11/14/2022. Status at Discharge Functional status at discharge: independent ambulation Overall status at discharge: patient is progressing back to baseline Time Spent with Patient Time attestation: Total time spent providing and/or coordinating discharge services: Time spent: Less than 30 minutes Exam Const: General: no acute distress and alert Orientation/consciousness: patient oriented x3 Resp: Effort & Inspection: normal respiratory effort Auscultation: clear to auscultation bilaterally Cardio: Rate: regular rate Rhythm: regular rhythm Heart sounds: S1 normal heart sound present and S2 normal heart sound present GI: Inspection: non-distended and incision ( Intact with glue) GI Palp: Yes Soft to palpation, Yes Tenderness to palpation present (GI) ( incisional) and No Guarding due to palpation present (GI) Auscultation: normal bowel sounds DS: Data Data Completed and Pending Pending studies at discharge: Pending at discharge 11/13/22 14:29 Surgical [PTH] Routine Labs on day of discharge: Labs from last 24 hours 11/14/22 11/14/22 05:41 05:41 WBC 12.2 H RBC 3.89 L Hgb 12.4 Hct 37.1 MCV 95.4 MCH 31.9 MCHC 33.4 RDW 12.6 Plt Count 316 MPV 9.4 Sodium 140 Potassium 3.7 Chloride 108 H Carbon Dioxide 29 Anion Gap 3 L BUN 6 L Creatinine 0.80 Estim Creat Clear Calc 76 Estimated GFR > 60 Glucose 122 H Calcium 8.8 Discharge Plan Discharge Attending physician on discharge: Adam Mosquera Consulting providers: Adam Mosquera Discharging Clinician: Adam Mosquera Patient Disposition: Home, Self-Care Activity: other - see discharge instructions Diet: other - see discharge instructions Wound Care Instructions: other - see discharge instructions Discharge Instructions: DISCHARGE INSTRUCTION SHEET FOR HERNIA, GALLBLADDER AND APPENDIX SURGERIES DR. MOSQUERA PATIENT TO TAKE HOME 1. May shower in 24 hours, no soaking in bath x 2weeks. 2. Call office for: Wound increasingly painful or bleeding Vomiting Fever of greater than 101 degrees 3. If no bowel movement for three days, take 1 oz. (30 ml) Milk of Magnesia or MiraLax 17g 1 to 2 times daily. 4. No heavy lifting > 10-15 pounds x weeks for hernia repairs and 2 weeks for laparoscopic cholecystectomy or appendectomy. 5. No driving for 3 days or while taking narcotic pain medications. 6. Ice to surgical site for 48 hours (30 min on, then 30 min off).
== END 2022-11-14 14:05 | disposition home or self-care (01) ==
LOC: ANHED 11-12 09:14 → ANH3MEDSUR 11-12 11:25
PROVIDERS: Admitting Provider Surgery; Emergency Provider Emergency Medicine; PCP Internal Medicine; Visit Provider Surgery
PROC: 0FT44ZZ Resection of Gallbladder, Percutaneous Endoscopic Approach (ICD-10-PCS; CPT 47562; principal; 2022-11-13 14:00)
DX: K80.12 Calculus of gallbladder with acute and chronic cholecystitis without obstruction (principal); Z87.891 Personal history of nicotine dependence; Z20.822 Contact with and (suspected) exposure to COVID-19
CPT/HCPCS: 47563; S2900; 36415; 74177; 76705; 80048; 80053; 81001; 82948; 83690; 85025; 85027; 87086; 87088; 87636; 88304; 96361; 96365; 96366; 96367; 96375; 96376; 99285; A9270; G0378; J0744; J1100; J1170; J2250; J2270; J2405; J2704; J2710; J3010; J7030; J7120; Q9967

== ENCOUNTER 2023-11-28 09:34 | Outpatient (CLI) | payer BC, SELFPAY ==
--- NOTE | ~2023-11-28 | MM_ITS ---
EXAMINATION: MM screening nikolas BI w mack HISTORY: Screening mammogram TECHNIQUE: Craniocaudal and mediolateral oblique 3-D tomosynthesis images were obtained and synthetic 2-D images were generated. CAD analysis was submitted and interpreted. COMPARISON: 09/19/2022 diagnostic bilateral mammogram and limited left breast ultrasound examination 01/29/2022 bilateral Limited breast ultrasound examination 07/31/2021 bilateral diagnostic mammography and bilateral complete breast ultrasound examination 08/31/2019 bilateral screening mammogram BREAST PARENCHYMAL COMPOSITION: There are scattered areas of fibroglandular density. FINDINGS: There is a biopsy marker on the left; history of prior benign left breast biopsy. There is no evidence of suspicious mass, calcification, or architectural distortion to suggest malignancy in e ither breast. There has been no suspicious interval change. IMPRESSION: 1. No mammographic evidence of malignancy. 2. Recommend routine screening mammography in one year. BI-RADS Category 1: Negative Reviewed, dictated and finalized at location A. ITUTION DIRECTOR
== END 2023-11-28 09:35 | disposition home or self-care (01) ==
LOC: ANHIMG 09:36
PROVIDERS: PCP Internal Medicine; Visit Provider Obstetrics & Gynecology Gynecology
DX: Z12.31 Encounter for screening mammogram for malignant neoplasm of breast (principal)
CPT/HCPCS: 77063; 77067

== ENCOUNTER 2023-12-11 13:09 | Outpatient (CLI) | payer BC, SELFPAY | END 2023-12-11 13:10 | disposition home or self-care (01) | LOC: ANHAUDIO 13:10 | PROVIDERS: PCP Internal Medicine; Visit Provider Nurse Practitioner | DX: H90.3 Sensorineural hearing loss, bilateral (principal) | CPT/HCPCS: 92557; 92567 ==

== ENCOUNTER 2023-12-18 00:13 | Day surgery (SDC) | payer BC, SELFPAY ==
[2023-11-26 11:07] VITALS: BMI 33.5
--- NOTE | 2023-12-16 08:16 | SUR.PREOP ---
Patient called regarding upcoming procedure. Voicemail left regarding appointment times.
--- NOTE | 2023-12-17 13:55 | PM.HPGS ---
History of Present Illness History of Present Illness Consent: Risks, benefits, and alternatives have been discussed and questions answered. Patient agrees to proceed with procedure. Chief complaint: History of colon polyps Narrative: Shabana Medina is a 58 year old female Referred for colon cancer screening. Six years ago she had a colonoscopy in a tiny polyp was removed but the pathology report does not show any actual polyp tissue. Review of Systems Review of Systems: All systems reviewed & are unremarkable except as noted in HPI and below PMFSH Past Medical History Medical History Depression Overactive bladder Surgical History Surgical History H/O: hysterectomy History of laparoscopic cholecystectomy 11/13/22 1. Laparoscopic cholecystectomy with cholangiography, da Apolinar assisted 2. Interpretation of cholangiography Family History Family History Father Family history of lung cancer Social History Social History Social History: caffeine Smoking packs per day: 1 Smoking cigarettes per day: 20.0 Years smoked: 15 Smoking pack-years: 15.00 Smoking status: Former smoker Tobacco type: cigarettes Smoking end date: 10/20/99 Alcohol intake: current Drinks per week: 5 Alcohol use details: BEERS Substance use: never Substance use type: does not use Lack of Transportation: No Lack of Food: Never True Current Housing: I Have Housing Concerned About Future Housing: No Difficulty Paying Gas/Electric Bills: No Difficulty Paying for Meds: No Currently Unemployed: No Education: High School Diploma/GED Difficulty w/ Childcare or Family Care: No Living arrangements: with family Gender identity (if verbalized by the patient): Female Sexual Orientation (if Verbalized by the Patient): Straight or Heterosexual Spiritual care concerns: No Meds Home Medications and Allergies Home Medications Medication Instructions Recorded Confirmed Type fluoxetine 40 mg capsule (Prozac) 40 mg PO DAILY 09/29/19 12/18/23 History cetirizine 10 mg tablet (Zyrtec) 10 mg PO DAILY Allergy Symptoms 11/20/23 12/18/23 History cholecalciferol (vitamin D3) 1,250 1,250 mcg PO WEEKLY 11/20/23 11/26/23 History mcg (50,000 unit) capsule liraglutide (weight loss) 3 mg/0.5 1.2 mg subcut DAILY 11/20/23 11/26/23 History mL (18 mg/3 mL) subcut pen injector (Saxenda) solifenacin 10 mg tablet 10 mg PO DAILY #90 tabs 12/08/23 12/18/23 Rx Allergies Allergy/AdvReac Type Severity Reaction Status Date / Time No Known Allergies Allergy Unverified 12/18/23 07:42 Exam Resp: Auscultation: clear to auscultation bilaterally Cardio: Rate: regular rate Rhythm: regular rhythm GI: GI Palp: Yes Soft to palpation and No Tenderness to palpation present (GI) Assessment and Plan Assessment and plan (1) Personal history of colonic polyps: Code(s): Z86.010 - Personal history of colonic polyps Status: Acute Assessment and Plan: Colonoscopy with possible biopsy or polypectomy or cautery or injection of substances.
[2023-12-18 07:44] VITALS: BP 127/83; PULSE 102; RESP 16; TEMP 36.3; O2SAT 97
[2023-12-18] MEDS: LACTATED RINGERS 1,000 ML 150 ML IV CONT (07:55)
--- NOTE | 2023-12-18 08:34 | WPDANESEPPF ---
Anes - Initial Pre Proc Eval Procedure: Operation Date: 12/18/23 09:00 Proposed Procedures p Screening Colonoscopy - Eleuterio Braga MD Date/Time: 12/18/23 08:34 Surgeon: Eleuterio Braga MD Pre Op Diagnosis: History of colon polyps Patient Data Age: 58 Gender: F Height: 1.66 m Weight: 90.8 kg Last Vital Signs Temp 36.3 C L 12/18/23 07:44 Pulse 102 H 12/18/23 07:44 Resp 16 12/18/23 07:44 BP 127/83 12/18/23 07:44 Pulse Ox 97 12/18/23 07:44 O2 Del Method Room Air 12/18/23 07:44 Allergies Allergy/AdvReac Type Severity Reaction Status Date / Time No Known Allergies Allergy Unverified 12/18/23 07:42 Home Medications Medication Instructions Recorded Confirmed Type fluoxetine 40 mg capsule (Prozac) 40 mg PO DAILY 09/29/19 12/18/23 History cetirizine 10 mg tablet (Zyrtec) 10 mg PO DAILY Allergy Symptoms 11/20/23 12/18/23 History cholecalciferol (vitamin D3) 1,250 1,250 mcg PO WEEKLY 11/20/23 11/26/23 History mcg (50,000 unit) capsule liraglutide (weight loss) 3 mg/0.5 1.2 mg subcut DAILY 11/20/23 11/26/23 History mL (18 mg/3 mL) subcut pen injector (Saxenda) solifenacin 10 mg tablet 10 mg PO DAILY #90 tabs 12/08/23 12/18/23 Rx Patient hx anesthesia problems: none Family hx anesthesia problems: none Results Review: All pre-operative results and documents have been reviewed as part of the pre-operative evaluation. [facility] Past Medical History Medical History Depression Overactive bladder Surgical History Surgical History H/O: hysterectomy History of laparoscopic cholecystectomy 11/13/22 1. Laparoscopic cholecystectomy with cholangiography, da Apolinar assisted 2. Interpretation of cholangiography Family History Family History Father Family history of lung cancer Social History Social History Social History: caffeine Smoking packs per day: 1 Smoking cigarettes per day: 20.0 Years smoked: 15 Smoking pack-years: 15.00 Smoking status: Former smoker Tobacco type: cigarettes Smoking end date: 10/20/99 Alcohol intake: current Drinks per week: 5 Alcohol use details: BEERS Substance use: never Substance use type: does not use Lack of Transportation: No Lack of Food: Never True Current Housing: I Have Housing Concerned About Future Housing: No Difficulty Paying Gas/Electric Bills: No Difficulty Paying for Meds: No Currently Unemployed: No Education: High School Diploma/GED Difficulty w/ Childcare or Family Care: No Living arrangements: with family Gender identity (if verbalized by the patient): Female Sexual Orientation (if Verbalized by the Patient): Straight or Heterosexual Spiritual care concerns: No Anes - Eval Final PreProcedure Day of Procedure 12/18/23 08:34 Patient weight: obese Heart: regular rate and rhythm Lungs: clear to auscultation Airway: Mallampati scale class II Neurological: alert and oriented Last oral intake: >/= 8 hours ASA classification: II Emergent: no Anesthetic plan: proceed Anesthesia type and monitoring: general GIVS and standard monitoring Results Review: All pre-operative results and documents have been reviewed as part of the pre-operative evaluation. Informed Consent: The patient's anesthetic plan and its attendant risks and benefits were discussed with the patient/family/POA. Questions were solicited and answers provided to the satisfaction of the patient/family/POA.
[2023-12-18 09:38] VITALS: BP 109/65; PULSE 81; RESP 23; O2SAT 98
[2023-12-18 09:48] VITALS: BP 112/72; PULSE 78; RESP 19; O2SAT 100
[2023-12-18 09:58] VITALS: BP 113/73; PULSE 78; RESP 19; O2SAT 99
== END 2023-12-18 10:02 | disposition home or self-care (01) ==
PROVIDERS: PCP Internal Medicine; Visit Provider Internal Medicine Gastroenterology
PROC: 0DJD8ZZ Inspection of Lower Intestinal Tract, Via Natural or Artificial Opening Endoscopic (ICD-10-PCS; CPT 45378; principal; 2023-12-18 09:00)
DX: Z12.11 Encounter for screening for malignant neoplasm of colon (principal); D12.3 Benign neoplasm of transverse colon; K57.30 Diverticulosis of large intestine without perforation or abscess without bleeding; Z87.891 Personal history of nicotine dependence
CPT/HCPCS: 45380; 88305; J2704; J7120

== ENCOUNTER 2024-04-07 09:36 | Outpatient (CLI) | payer BC, SELFPAY ==
--- NOTE | ~2024-04-07 | XR_ITS ---
EXAMINATION: XR cervical spine 4-5V DATE: 04/07/2024 09:47 INDICATION: Headache. TECHNIQUE: 4 views of cervical spine were obtained. COMPARISON: None. FINDINGS: There is kyphosis of cervical spine. Vertebral body heights are normal. There is severely d ecreased disc height at C5-C6 and C6-C7. There is multilevel uncovertebral joint osteoarthritis, jose re bilaterally at C5-C6 and C6-C7. There is multilevel mild facet joint osteoarthritis. There is mild central canal stenosis at C5-C6 and C6-C7. No prevertebral soft tissue swelling. IMPRESSION: 1. Severe cervical spondylosis. Reviewed, dictated and finalized at location A.
== END 2024-04-07 09:37 ==
PROVIDERS: PCP Nurse Practitioner; Visit Provider Nurse Practitioner
DX: M43.02 Spondylolysis, cervical region (principal)
CPT/HCPCS: 72050

== ENCOUNTER 2024-04-09 09:16 | Outpatient (CLI) | payer BC, SELFPAY ==
--- NOTE | ~2024-04-09 | MR_ITS ---
MR cervical spine wo con Ordering provider: Lucy Martinez NP History: 59 years Female with . M54.12 - Radiculopathy, cervical region . Comparison: None. Technique: MRI cervical spine without contrast. FINDINGS: CERVICAL SPINAL CORD/CRANIAL CERVICAL JUNCTION: Normal in signal and caliber. CERVICAL VERTEBRAL BODIES: Normal height and alignment. Normal marrow signal. DISK SPACES: Narrowing of the disc C5-C6 and C6-C7 otherwise, normal. C2-C3: No stenosis. C3-C4: No stenosis. Diffuse disc bulge with osteophyte formation and slight narrowing of the right in tervertebral foramen. Nerve root compression is seen on the right side. C4-C5: No stenosis. C5-C6: No stenosis. Mild diffuse disc bulge with osteophyte formation and narrowing of the right inte rvertebral foramen and with compression. C6-C7: No stenosis. Mild diffuse disc bulge with osteophyte formation. Slight narrowing of the right foramen with mild nerve root compression seen. C7-T1: No stenosis. VISUALIZED PARASPINOUS SOFT TISSUES: Normal. IMPRESSION: 1. Acute osseous abnormality. 2. Multilevel degenerative disc disease with variable degrees of intervertebral foraminal narrowing and the root compression. Reviewed, dictated and finalized at location A. IMPRESSION: 1. Acute osseous abnormality. 2. Multilevel degenerative disc disease with variable degrees of intervertebra l foraminal narrowing and the root compression.
== END 2024-04-09 09:17 ==
LOC: GOSHIMG 09:16
PROVIDERS: PCP Nurse Practitioner; Visit Provider Nurse Practitioner
DX: M54.12 Radiculopathy, cervical region (principal); M50.30 Other cervical disc degeneration, unspecified cervical region
CPT/HCPCS: 72141

== ENCOUNTER 2025-01-11 13:43 | Emergency (ER) | payer BC, SELFPAY ==
[2025-01-11 13:49] VITALS: BP 111/80; PULSE 95; RESP 16; TEMP 36.6; O2SAT 97
--- NOTE | 2025-01-11 14:27 | ED.WOUNDLAC ---
HPI - Wound/Laceration General Chief Complaint: Wound/Laceration Stated Complaint: left finger cut Time Seen by Provider: 01/11/25 14:28 Source: patient and RN notes reviewed Mode of arrival: ambulatory Limitations: no limitations History of Present Illness HPI narrative: 59-year-old female presents concern for laceration at the tip of the 2nd digit of her left hand. She reports she cut the finger when she was cleaning on a stove event. She denies decreased strength, sensation, range of motion in the digit. Related Data Home Medications ?Medication ?Instructions ?Recorded ?Confirmed ?Last Taken ?Type fluoxetine 40 mg capsule (Prozac) 40 mg PO DAILY 09/29/19 11/24/24 12/18/23 History cetirizine 10 mg tablet (Zyrtec) 10 mg PO DAILY Allergy Symptoms 11/20/23 11/24/24 12/18/23 History cholecalciferol (vitamin D3) 1,250 1,250 mcg PO WEEKLY 11/20/23 11/24/24 Unknown History mcg (50,000 unit) capsule methylphenidate HCl 10 mg tablet 10 mg PO DAILY 05/25/24 11/24/24 Unknown History (Ritalin) Allergies Allergy/AdvReac Type Severity Reaction Status Date / Time No Known Allergies Allergy Verified 01/11/25 13:56 Review of Systems Review of Systems: CONSTITUTIONAL: Denies malaise, chills, sweats, or fever. SKIN: Reports laceration 2nd digit of left hand MUSCULOSKELETAL: Denies muscle skeletal pain NEUROLOGIC: Denies numbness, weakness All systems reviewed & are unremarkable except as noted in HPI and below PMFSH Past Medical History Medical History Overactive bladder Depression Surgical History Surgical History History of laparoscopic cholecystectomy 11/13/22 1. Laparoscopic cholecystectomy with cholangiography, da Apolinar assisted 2. Interpretation of cholangiography H/O: hysterectomy Family History Family History Father Family history of lung cancer Social History Social History Social History: caffeine Smoking packs per day: 1 Smoking cigarettes per day: 20.0 Years smoked: 15 Smoking pack-years: 15.00 Smoking status: Former smoker Tobacco type: cigarettes Smoking end date: 10/20/99 Alcohol intake: current Drinks per week: 5 Alcohol use details: BEERS Substance use: never Substance use type: does not use Do You Feel Safe in your Home?: Yes Lack of Transportation: No Lack of Food: Never True Current Housing: I Have Housing Concerned About Future Housing: No Difficulty Paying Gas/Electric Bills: No Difficulty Paying for Meds: No Currently Unemployed: No Education: High School Diploma/GED Difficulty w/ Childcare or Family Care: No Living arrangements: with family Gender identity (if verbalized by the patient): Female Sexual Orientation (if Verbalized by the Patient): Straight or Heterosexual Spiritual care concerns: No Comments At time of signature, agree with nursing past medical, surgical, social and family history. There is no relevant family history pertinent to the presenting complaint Exam Narrative: GENERAL: Well-appearing, well-nourished, and in no acute distress. HEAD: Normocephalic EYES: PERRLA, conjunctivae clear NECK: Supple. CHEST: Speaks in full sentences. No respiratory distress. HEART: Regular rate and rhythm. Normal and equal peripheral pulses. EXTREMITIES: 2nd digit left hand has normal strength and sensation. 5/5 strength with digit flexion, extension. Range of motion normal. Good capillary refill and radial pulse. Distal capillary refill less than 3 seconds. SKIN: Warn, dry, intact, pink. 1 cm laceration noted to the tip of the palmar aspect of this 2nd digit of the left hand NEURO: Alert and oriented x3. PSYCH: Normal mood and affect Course Course Emergency Course: Patient is aware of diagnosis, understands and agrees to treatment plan. Anticipatory guidance given. Patient agrees to follow-up as directed and is aware of reasons to seek care at the emergency department. Portions of this record may have been created with voice recognition software Level of Care: Express Care Visit Vital Signs Vital signs: Vital Signs Temperature 97.8 F 01/11/25 13:49 Pulse Rate 95 01/11/25 13:49 Respiratory Rate 16 01/11/25 13:49 Blood Pressure 111/80 01/11/25 13:49 Pulse Oximetry 97 01/11/25 13:49 Oxygen Delivery Room Air 01/11/25 13:49 Temperature 97.8 F 01/11/25 13:49 Pulse Rate 95 01/11/25 13:49 Respiratory Rate 16 01/11/25 13:49 Blood Pressure 111/80 01/11/25 13:49 Pulse Oximetry 97 01/11/25 13:49 Oxygen Delivery Room Air 01/11/25 13:49 Reviewed. Procedures Laceration Laceration 1: Date: 01/19/25 Time: 14:34 Site: hand Side (If applicable): left Size (cm): 1 Description: linear Depth: simple, single layer Pre-repair: wound explored and irrigated ====== Skin Level ====== Skin layer closed with: dermabond ====== Subcutaneous Layer ====== ====== Muscle Layer ====== ====== Tendon Layer ====== MDM - Wound/Laceration MDM Narrative Medical decision making narrative: Wound explored for foreign body and copious irrigation provided with no evidence of FB. Anticipatory guidance was provided. Tetanus prophylaxis was given Differential Diagnosis Differential diagnosis: Likely laceration, abrasion and avulsion of skin Critical Care Time Critical Care Time Critical Care Time: No Discharge Plan Discharge Clinical Impression: Laceration Patient Disposition: Home, Self-Care Condition: Stable Instructions: Laceration (ED) Additional Instructions: Skin adhesive care: -adhesive works like a bandage; do not use antibiotic ointment as it can break down the adhesive -You can shower while the adhesive is on your skin, but do not take a bath or soak or scrub the area for 7-10 days. Dry your skin by patting it gently with a towel. -The adhesive will peel off on its own; usually by 5-10days. If after 10 days, you still have adhesive on you, you can use antibiotic ointment or petroleum jelly to get it off. After you heal, you should protect the scar from the sun. Use sunscreen on the area or wear clothes or a hat that covers the scar. Follow up with your PCP as needed If you have any worsening of symptoms, redness, swelling, fever, or drainage, or any other concerns please follow up with your PCP or go to the ED immediately. Patient Language: Bhutanese Prescriptions: No Action fluoxetine [Prozac] 40 mg capsule 40 mg PO DAILY cholecalciferol (vitamin D3) 1,250 mcg (50,000 unit) capsule 1,250 mcg PO WEEKLY cetirizine [Zyrtec] 10 mg tablet 10 mg PO DAILY methylphenidate HCl [Ritalin] 10 mg tablet 10 mg PO DAILY solifenacin 10 mg tablet 10 mg PO DAILY Qty: 90 1RF Zepbound 7.5 mg/0.5 mL pen injector 7.5 mg subcut WEEKLY Qty: 2 0RF Follow-up/Referrals: Freeman Traore DO [Primary Care Provider] - Time of Disposition: 14:59
[2025-01-11] MEDS: TETANUS,DIPHTHERIA,AC PERTUSSIS ADULT (0.5 ML) BOOSTRIX IM (14:50)
== END 2025-01-11 15:05 | disposition home or self-care (01) ==
PROVIDERS: Emergency Provider Nurse Practitioner; PCP Internal Medicine
DX: S61.211A Laceration without foreign body of left index finger without damage to nail, initial encounter (principal); W45.8XXA Other foreign body or object entering through skin, initial encounter; Z23 Encounter for immunization; Z87.891 Personal history of nicotine dependence; F32.A Depression, unspecified
CPT/HCPCS: 12001; 90471; 90715; 99212; G0463

== ENCOUNTER 2025-05-19 08:30 | Outpatient (CLI) | payer BC, SELFPAY ==
--- NOTE | ~2025-05-19 | MM_ITS ---
EXAMINATION: MM screening nikolas BI w mack HISTORY: Screening TECHNIQUE: Craniocaudal and mediolateral oblique 3-D tomosynthesis images were obtained and synthetic 2-D images were generated. CAD analysis was submitted and interpreted. COMPARISON: Comparison to multiple prior studies sequentially, with oldest reviewed study dated 07/03. BREAST PARENCHYMAL COMPOSITION: Not dense: There are scattered areas of fibroglandular density. FINDINGS: There is no evidence of suspicious mass, calcification, or architectural distortion to sugg est malignancy in either breast. There has been no suspicious interval change. IMPRESSION: 1. No mammographic evidence of malignancy. 2. Recommend routine screening mammography in one year. BI-RADS Category 1: Negative Reviewed, dictated and finalized at location B.
--- OUTSIDE RECORDS SUMMARY | 2025-05-19 08:39 | XMS_ITS | Clinical Summary ---
Author Organization [employer] Address [address] [facility] Attn: Epic Prelude ADT [place]NY WALLACE [address] Care Team Providers Care Chemical Tank Worker Name Role Phone Salvador Bhardwaj MD Primary Care Provider [phone] Active Problems Patient Care Coordination No te Formatting of this note migh t be different from the original. PCP Dr. Salvador Bhardwaj [phone] No additional problems on file Social History Tobacco Use Types Packs/Day Years Used Date Smoking Tobacco: Never Assessed Comments Unknown Sex and Gender Information Value Date Recorded Sex Assigned at Not on file Legal Sex Female 5:19 PM TESTING CONSULTANT Gender Identity Not on file Sexual Orientation Not on file Plan of Treatment Health Maintenance Due Date Last Done Comments DTAP/TDAP/TD VACCINES (1 - Tdap) 1986 HEPATITIS B VACCINES (1 of 3 - 19+ 3-dose series) 1986 HPV/Cotest (21-29) 1988 HPV/Cotest (30-65) 1997 FIT-DNA Q 3 years 2012 FIT/FOBT Q 1 year 2012 Flex Sig/CT Colonography Q 5 years 2012 ZOSTER VACCINE (1 of 2) 2017 BREAST CANCER SCREENING 08/31/2020 08/31/20 19, 08/31/2019, 07/03/2018, Additional history exists CERVICAL CANCER SCREENING 08/31/2022 PAP SMEAR 08/31/2022 08/31/2019, 07/21, 08/12/2017, Additional history exists INFLUENZA VACCINE (#1) 2025 COLORECTAL SCREENING 08/14/2028 08/14/2018 Colorectal Cancer Screening 08/14/2028 Care Teams Chemical Tank Worker Relationship Specialty Start Date End Date Salvador Bhardwaj MD [address] [place] [address] PCP - General Family Practice 05/20/19
--- OUTSIDE RECORDS SUMMARY | 2025-05-19 08:39 | XMS_ITS | Clinical Summary ---
Author Organization [facility] Address [address] [place] [address] Care Team Providers Care Thread Milling Machine Set Up Operator Name Role Phone Dave Brothers MD Primary Care Provider [phone] Source Comments [facility],non-owned Affiliates and Associated Physician Practices is amultiple site organization consisting of ambulatory clinics and hospital sitesin [place], [place] and [place]. This disclosure is being madepursuant to the Care Everywhere program and may not contain all information available regarding this patient. Last updated 18.[facility] Social History Tobacco Use Types Packs/Day Years Used Date Smoking Tobacco: Never Assessed Comments Unknown Sex and Gender Information Value Date Recorded Sex Assigned at Not on file Legal Sex Female 6:16 AM LINEN CLERK Gender Identity Not on file Sexual Orientation Not on file Plan of Treatment Health Maintenance Due Date Last Done Comments COLOGUARD (AGES 45-75) - COL ON CA SCREENING 1967 COLON MONITORING 1967 COLONOSCOPY - COLON CA SCREENING 1967 CT COLONOGRAPHY - COLON CA SCREENING 1967 Colorectal Cancer Screening 1967 FIT - COLON CA SCREENING 1967 FLEX SIG - COLON CA SCREENING 1967 LIPID TESTING 1967 MAMMOGRAM 1967 HIV SCREENING 1982 HEPATITIS C SCREENING 03/17/1985 DTAP/TDAP/TD VACCINES (1 - Tdap) 1986 HEPATITIS B VACCINE (1 of 3 - 19+ 3-dose series) 1986 PAP SMEAR 1988 PNEUMOCOCCAL VACCINE 50+ (1 of 1 - PCV) 2017 ZOSTER VACCINE (1 of 2) 2017 COVID-19 VACCINE (1 - 2024-2 5 season) 2024 DEPRESSION SCREENING 10/20/2024 INFLUENZA VACCINE (#1) 2025 HIB VACCINE Aged Out No longer eligi ble based on patient's age to complete this topic HPV VACCINE Aged Out No longer eligi ble based on patient's age to complete this topic MENINGOCOCCAL (Group B) VACC INE SHARED DECISION-MAKING Aged Out No longer eligibl e based on patient's age to complete this topic MENINGOCOCCAL GROUPS A/C/Y/W VACCINE Aged Out No longer eligible b ased on patient's age to complete this topic Insurance [facility]/PENDING SALE TO [facility] SELF PAY NO INSURANCE Member Subscriber Plan / Payer (Ef fective for All Dates) Name:Shabana Medina Member ID:Not on file Relation to Subscriber:Not on file Name:SHABANA MEDINA Subscriber ID:Not on file Address: [address] [place], [place] [address] [address] Payer ID:Not on file Group ID:Not on file Type:Self Pay Address: [facility] Member Subscriber Plan / Payer (Ef fective 2021-Present) Name:Shabana Medina Member ID:[id number] Relation to Subscriber:Spouse Name:RADHA MEDINA Subscriber ID:[id number] Date of :1964 Address: [address] [place] [address] Payer ID:[id number] (NAIC) Type:PPO Address: [address] [place] [address] [facility] [place] SELF PAY NO INSURANCE Member Subscriber Plan / Payer (Ef fective for All Dates) Name:Shabana Medina Member ID:Not on file Relation to Subscriber:Not on file Name:SHABANA MEDINA Subscriber ID:Not on file Address: [facility] [place] [address] Payer ID:Not on file Group ID:Not on file Type:Self Pay Address: [place], [place] [facility] [place] SELF PAY NO INSURANCE Member Subscriber Plan / Payer (Ef fective for All Dates) Name:Shabana Medina Member ID:Not on file Relation to Subscriber:Not on file Name:SHABANA MEDINA Subscriber ID:Not on file Address: [facility] [place] [address] Payer ID:Not on file Group ID:Not on file Type:Self Pay Address: [place] [place] [address] Care Teams Thread Milling Machine Set Up Operator Relationship Specialty Start Date End Date Dave Brothers MD [address] [place] [address] PCP - General 11/20/22
--- OUTSIDE RECORDS SUMMARY | 2025-05-19 08:39 | XMS_ITS | Clinical Summary ---
Author Organization [facility] Address [address] [place] [id number] Care Team Providers Care [place] Name Role Phone Salvador Bhardwaj MD Primary Care Provider [phone] Social History Tobacco Use Types Packs/Day Years Used Date Smoking Tobacco: Never Assessed Comments Unknown Sex and Gender Information Value Date Recorded Sex Assigned at Not on file Legal Sex Female 11:01 AM CDT Gender Identity Not on file Sexual Orientation Not on file Plan of Treatment Health Maintenance Due Date Last Done Comments Cervical Cancer Screening Pa p Smear (Age 30 to 64) Every 3 Years 1967 Colorectal Cancer Screening Colonoscopy (10 Years) 1967 Annual Physical 1970 Hepatitis C 1985 DTaP, Tdap and Td Vaccines ( 1 - Tdap) 1986 Hepatitis B Vaccines (1 of 3 - 19+ 3-dose series) 1986 Cervical Cancer Screening Pa p with HPV Testing (Age 30 to 64) Every 5 Years 1997 Cervical Cancer Screening with HPV 1997 Mammogram Screening 2007 Pneumococcal Vaccine: 50+ Ye ars (1 of 1 - PCV) 2017 Zoster Vaccines (1 of 2) 2017 COVID-19 Vaccine (2023-2 5 season) 2024 PHQ-2 (Physician [place]) 10/20/2024 Meningococcal B Vaccine Aged Out No l onger eligible based on patient's age to complete this topic Meningococcal Vaccine Aged Out No tammie kadi eligible based on patient's age to complete this topic RSV Immunizations Under 20 Months Aged Out No longer eligible based on patient's age to complete this [place] [address] [facility] Care Teams [place] Relationship Specialty Start Date End Date Salvador Bhardwaj MD [address] [address] PCP - General FAMILY PRACTICE 04/28/18
== END 2025-05-19 08:31 | disposition home or self-care (01) ==
LOC: ANHIMG 08:33
PROVIDERS: PCP Internal Medicine; Visit Provider Obstetrics & Gynecology Gynecology
DX: Z12.31 Encounter for screening mammogram for malignant neoplasm of breast (principal)
CPT/HCPCS: 77063; 77067